=== PATIENT | female | born 1955 | race Caucasian/White ===

== ENCOUNTER → 2025-04-07 12:34 | Outpatient (REF) | payer MEDICARE, OTHER, SELFPAY | LOC: SDSPAT 12:34 | PROVIDERS: ATTENDING PHYSICIAN Obstetrics & Gynecology; FAMILY PHYSICIAN Family Medicine | DX: N81.6 Rectocele (principal) | CPT/HCPCS: 36415; 86850; 86900; 86901; 93005 ==

== ENCOUNTER 2025-05-11 06:33 | Day surgery (SDC) | payer MEDICARE, OTHER, SELFPAY ==
[2025-04-07 13:54] VITALS: BMI 21.5
[2025-05-11] VITALS (14 sets, daily range): BP systolic 81–120; BP diastolic 28–85; BMI 21.5
[2025-05-11] MEDS: NORMOSOL-R/PLASMALYTE-A 1000 IV (11:38)
[2025-05-11] MEDS: DILAUDID 0.5 MG IV ×4 (15:19→16:26)
[2025-05-11 15:38] LABS: Hematocrit 38.2 % (37.0-47.0); Hemoglobin 13.0 g/dL (12.0-16.0); Mean Corp Hgb Conc. 34.0 g/dL (33.0-37.0); Mean Corpuscular Volume 95.3 fL (81.0-99.0); Platelet Count 288 10^3/uL (130-400); Red Cell Dist. Width 12.5 % (11.5-14.5)
== END 2025-05-11 19:55 | disposition home or self-care (01) ==
LOC: SDS 06:33
PROVIDERS: ATTENDING PHYSICIAN Obstetrics & Gynecology; FAMILY PHYSICIAN Family Medicine
DX: N81.6 Rectocele (principal); N95.2 Postmenopausal atrophic vaginitis; N39.3 Stress incontinence (female) (male); N36.41 Hypermobility of urethra
CPT/HCPCS: 57282; 57250; 85027; 86850; 86900; 86901